=== PATIENT | male | born 1950 | race Caucasian/White ===

== ENCOUNTER 2022-06-01 13:47 | Inpatient (IN) | payer MEDICARE, BC ==
[2022-06-01] VITALS (12 sets, daily range): BP systolic 84–117; BP diastolic 51–93
[~2022-06-01] VITALS: Ht 172.7 cm; Wt 116.3 kg
[2022-06-01 15:41] LABS: International Normalized Ratio 3.97; Prothrombin Time Results 38.6 Sec (9.7-11.5)
[2022-06-01] MEDS ORDERED: COMBIVENT RESPIM4 G1 INH (15:44)
[2022-06-01] MEDS ORDERED: JANTOVEN5 M2 PO (15:44)
[2022-06-01] MEDS ORDERED: NEBIVOLOL HCL10 MG PO (15:44)
[2022-06-01] MEDS ORDERED: DOXAZOSIN MESYLA8 M2 PO (15:45)
[2022-06-01] MEDS ORDERED: METO5 PO (15:45)
[2022-06-01] MEDS ORDERED: ATOR10 PO (15:45)
[2022-06-01] MEDS ORDERED: K-TAB ER20 ME2 PO (15:45)
[2022-06-01] MEDS ORDERED: FUROSEMIDE40 MG PO (15:46)
[2022-06-01] MEDS ORDERED: Saw Palmetto160 MG PO (15:54)
[2022-06-01] MEDS ORDERED: OMEP20ER PO (15:54)
[2022-06-01] MEDS ORDERED: MULTIPLE VITAM1 EACH PO (15:54)
[2022-06-01] MEDS ORDERED: Garlic500 MG PO (15:55)
[2022-06-01] MEDS ORDERED: IPRAT-ALBUT 0.5-3 ML INH (18:51)
--- NOTE | 2022-06-01 19:13 | NUR ---
PCU ADMIT / END OF SHIFT PT BROUGHT TO PCU-19 BY STARR FROM ER @ APPROX 1745. PT A&O X4. PT ABLE TO STAND & WEAK[facility] BED. PT BP SOFT, BUT STABLE. SPO2 > 92% ON RA THOUGH PT REPORTING FEELING SOB. PT REPORTING INABILITY TO LAY FLAT. PT PALE IN APPEARANCE. PROTONIX GTT INFUSING UPON ARRIVAL TO UNIT. PG STARTED IN PCU & UNIT OF pRBCs INITIATED. UNIT OF BLOOD TRANSFUSING AT THIS TIME W/ PT TOLERATING WELL. REPORT GIVEN TO ACCEPTING SPARE PARTS CLERK RN.
[2022-06-01 22:33] LABS: Hematocrit 22.1 % (37.0-53.0); Hemoglobin 6.9 g/dL (13.5-17.5)
[2022-06-02] VITALS (15 sets, daily range): BP systolic 82–123; BP diastolic 46–82
[2022-06-02 04:48] LABS: BASOPHILS ABSOLUTE AUTO 0.09 K/mm3 (0.00-0.23); BASOPHILS PERCENT AUTO 1 % (0-2); EOSINOPHILS ABSOLUTE AUTO 0.08 K/mm3 (0.00-0.68); EOSINOPHILS PERCENT AUTO 1 % (0-6); Hematocrit 23.4 % (37.0-53.0); Hemoglobin 7.4 g/dL (13.5-17.5); IMMATURE GRAN ABSOLUTE AUTO 0.02 K/mm3 (0.00-0.10); IMMATURE GRAN PERCENT AUTO 0 % (0-1); LYMPHOCYTES ABSOLUTE AUTO 0.62 K/mm3 (0.84-5.20); LYMPHOCYTES PERCENT AUTO 8 % (21-46); MONOCYTES ABSOLUTE AUTO 1.08 K/mm3 (0.16-1.47); MONOCYTES PERCENT AUTO 14 % (4-13); Mean Corpuscular HGB 25.9 pg (26.0-34.0); Mean Corpuscular HGB Conc 31.6 g/dL (31.5-36.5); Mean Corpuscular Volume 82 fL (80-100); Mean Platelet Volume 9.3 fL (9.1-12.4); NEUTROPHILS ABSOLUTE AUTO 5.86 K/mm3 (1.96-9.15); NEUTROPHILS PERCENT AUTO 76 % (41-73); Platelet Count 230 K/mm3 (150-400); RDW Standard Deviation 50.8 fL (35.1-46.3); Red Blood Cell Count 2.86 M/mm3 (4.30-5.90); White Blood Cell Count 7.75 K/mm3 (4.00-11.30)
[2022-06-02 05:11] LABS: Albumin, Blood 3.6 g/dL (3.4-5.0); Albumin/Globulin Ratio 1.3 (0.8-1.8); Bilirubin, Total 1.5 mg/dL (0.1-1.0); Bun/Creatinine Ratio 45.5 (12.0-20.0); Calcium, Blood 8.6 mg/dL (8.5-10.1); Creatinine, Blood 1.23 mg/dL (0.60-1.20); Globulin, Blood 2.7 g/dL (2.2-4.0); Total Protein, Blood 6.3 g/dL (6.4-8.2)
--- NOTE | 2022-06-02 05:50 | NUR ---
END OF SHIFT PT ANXIOUS AND AGITATED ALL NIGHT, DID NOT SLEEP AND WOULD NOT LAY DOWN, NPO SINCE 0300 FOR POSSIBLE GI INTERVENTION, RCIEVED 2 UNITS PRBC'S, RA, VSS, GOOD UO, LAST HGB 7.4
[2022-06-02 08:32] LABS: Hematocrit 22.7 % (37.0-53.0); Hemoglobin 7.3 g/dL (13.5-17.5)
[2022-06-02 11:37] LABS: International Normalized Ratio 3.56; Prothrombin Time Results 34.8 Sec (9.7-11.5)
[2022-06-02 12:55] LABS: Hematocrit 23.2 % (37.0-53.0); Hemoglobin 7.4 g/dL (13.5-17.5)
--- NOTE | 2022-06-02 15:05 | NUR ---
PROCEDURE PT A&O X4. VSS. SPO2 > 92% ON RA. MONITOR SHOWING AFIB, HR 70s. PT REPORTS LAST BM LAST NIGHT. PROTONIX GTT INFUSING PER ORDERS. 1 UNIT FFP GIVEN. 2ND UNIT FFP INITIATED. NURSES TO PT RM TO TAKE PT FOR EGD. PROTONIX GTT PLACED ON STANDBY PER PROCEDURE NURSE. PT TAKEN FOR EGD W/ 2ND UNIT FFP INFUSING @ APPROX 1500.
--- NOTE | 2022-06-02 15:18 | NUR ---
IV ACCESS TO SERAFIN WITH FFP INFUSING, DRESSING D&I.
--- NOTE | 2022-06-02 15:38 | NUR ---
06/02/22 1538 Aaron Bower History, Chart, Medications and Allergies reviewed before start of procedure.MONITOR INTACT WITH CONTINUOUS PULSE OXIMETRY, CONTINUOUS END TITAL CO2, AND INTERMITTENT BLOOD PRESSURE.3-LEAD EKG REVIEWED WITH PHYSICIAN PRIOR TO START OF PROCEDURE.O2 VIA POM INTACT THROUGHOUT SEDATION/PROCEDURE.See Anesthesia record.
[2022-06-02 17:11] LABS: Hematocrit 22.6 % (37.0-53.0); Hemoglobin 7.1 g/dL (13.5-17.5)
[2022-06-02 17:52] LABS: International Normalized Ratio 2.58
[2022-06-02 18:25] LABS: Prothrombin Time Results 25.7 Sec (9.7-11.5)
--- NOTE | 2022-06-02 18:39 | NUR ---
END OF SHIFT PT CONTINUES TO BE A&O X4. VSS. SPO2 > 92% ON RA. MONITOR SHOWING AFIB, HR 70s. EGD DONE THIS SHIFT. PROTONIX GTT DC'd. MD METZGER STATING PT SHOULD BE HEPARINIZED. MD LYNNE W/ ORDER FOR HEPARIN GTT PER PHARMACY. PT TAKES WARFARIN AT HOME W/ PT REPORT OF LAST DOSE "7MG TUESDAY NIGHT." PHARMACY MANAGING & MONITORING W/ NO ORDER FOR MEDICATION AT THIS TIME. PHARMACY CONTINUING TO MONITOR. W/ ORDER TO ADVANCE DIET TOLERATED. PT EATING DINNER, TOLERATING WELL. PT DENYING PAIN/DISCOMFORT.
[2022-06-02 22:24] LABS: Hematocrit 23.6 % (37.0-53.0); Hemoglobin 7.3 g/dL (13.5-17.5)
[2022-06-03] VITALS (7 sets, daily range): BP systolic 105–146; BP diastolic 60–82
[2022-06-03 06:14] LABS: BASOPHILS ABSOLUTE AUTO 0.08 K/mm3 (0.00-0.23); BASOPHILS PERCENT AUTO 1 % (0-2); EOSINOPHILS ABSOLUTE AUTO 0.14 K/mm3 (0.00-0.68); EOSINOPHILS PERCENT AUTO 2 % (0-6); Hematocrit 22.4 % (37.0-53.0); IMMATURE GRAN ABSOLUTE AUTO 0.02 K/mm3 (0.00-0.10); IMMATURE GRAN PERCENT AUTO 0 % (0-1); LYMPHOCYTES ABSOLUTE AUTO 0.52 K/mm3 (0.84-5.20); LYMPHOCYTES PERCENT AUTO 8 % (21-46); MONOCYTES ABSOLUTE AUTO 0.89 K/mm3 (0.16-1.47); MONOCYTES PERCENT AUTO 13 % (4-13); Mean Corpuscular HGB 26.1 pg (26.0-34.0); Mean Corpuscular HGB Conc 31.3 g/dL (31.5-36.5); Mean Corpuscular Volume 84 fL (80-100); Mean Platelet Volume 9.6 fL (9.1-12.4); NEUTROPHILS ABSOLUTE AUTO 5.14 K/mm3 (1.96-9.15); NEUTROPHILS PERCENT AUTO 76 % (41-73); NRBC ABSOLUTE 0.02 K/mm3 (0.00-0.02); NRBC Auto 0.3 /100 WBC (0.0-0.2); Platelet Count 234 K/mm3 (150-400); RDW Coefficient Variation 18.5 % (11.7-14.2); RDW Standard Deviation 53.7 fL (35.1-46.3); Red Blood Cell Count 2.68 M/mm3 (4.30-5.90); White Blood Cell Count 6.79 K/mm3 (4.00-11.30)
--- NOTE | 2022-06-03 06:19 | NUR ---
PT SLEPT 2 HOURS, OTHERWISE VSS, UP TO BATHROOM WITHOUT ISSUES, RA, NO SOB OR REPORT OF SYMPTOMS RETURNING, LAST HGB 7.3 AND THIS AM RESULT IS PENDING
[2022-06-03 06:32] LABS: Bun/Creatinine Ratio 36.2 (12.0-20.0); Calcium, Blood 8.5 mg/dL (8.5-10.1); Creatinine, Blood 1.05 mg/dL (0.60-1.20); Potassium, Blood 3.5 mmol/L (3.5-5.5)
[2022-06-03 07:17] LABS: International Normalized Ratio 2.67; Prothrombin Time Results 26.5 Sec (9.7-11.5)
[2022-06-03 15:04] LABS: BASOPHILS ABSOLUTE AUTO 0.09 K/mm3 (0.00-0.23); BASOPHILS PERCENT AUTO 1 % (0-2); EOSINOPHILS ABSOLUTE AUTO 0.12 K/mm3 (0.00-0.68); EOSINOPHILS PERCENT AUTO 2 % (0-6); Hematocrit 24.5 % (37.0-53.0); Hemoglobin 7.7 g/dL (13.5-17.5); IMMATURE GRAN ABSOLUTE AUTO 0.04 K/mm3 (0.00-0.10); IMMATURE GRAN PERCENT AUTO 1 % (0-1); LYMPHOCYTES ABSOLUTE AUTO 0.55 K/mm3 (0.84-5.20); LYMPHOCYTES PERCENT AUTO 8 % (21-46); MONOCYTES ABSOLUTE AUTO 1.04 K/mm3 (0.16-1.47); MONOCYTES PERCENT AUTO 16 % (4-13); Mean Corpuscular HGB 26.7 pg (26.0-34.0); Mean Corpuscular HGB Conc 31.4 g/dL (31.5-36.5); Mean Corpuscular Volume 85 fL (80-100); Mean Platelet Volume 9.3 fL (9.1-12.4); NEUTROPHILS ABSOLUTE AUTO 4.74 K/mm3 (1.96-9.15); NEUTROPHILS PERCENT AUTO 72 % (41-73); Platelet Count 230 K/mm3 (150-400); RDW Coefficient Variation 18.1 % (11.7-14.2); RDW Standard Deviation 54.5 fL (35.1-46.3); Red Blood Cell Count 2.88 M/mm3 (4.30-5.90); White Blood Cell Count 6.58 K/mm3 (4.00-11.30)
[2022-06-03] MEDS ORDERED: PANT40 PO (15:51)
[2022-06-03] MEDS ORDERED: WARF4 PO (15:52)
[2022-06-03] MEDS ORDERED: Acetaminophen650 M1 PO (15:53)
[2022-06-03] MEDS ORDERED: PRAM.125 PO (15:54)
[2022-06-03] MEDS ORDERED: TRAM50 PO (15:56)
--- NOTE | 2022-06-03 17:00 | NUR ---
DISCHARGE HOME PT A&O X4. VSS. SPO2 > 92% ON RA. MONITOR SHOWING AFIB, HR 70s. 1 UNIT pRBCs INFUSED PER ORDERS. REPEAT BLOOD WORK DRAWN AFTER BLOOD TRANSFUSION. MD LYNNE W/ ORDER FOR DISCHARGE HOME. DISCHARGE INSTRUCTIONS/FOLLOW UP INSTRUCTIONS REVIEWED W/ PT & SENT HOME W/ PT. PIV & PG REMOVED. PT TAKEN OUT IN WHEELCHAIR W/ BELONGINGS.
== END 2022-06-03 17:53 | disposition home or self-care (01) | DRG 811 ==
LOC: ER 13:47 → PCU 16:02
PROVIDERS: Emergency Medicine; Internal Medicine Gastroenterology; ADMIT Internal Medicine
PROC: 30233N1 Transfusion of Nonautologous Red Blood Cells into Peripheral Vein, Percutaneous Approach (ICD-10-PCS; 2022-06-01)
PROC: 30233K1 Transfusion of Nonautologous Frozen Plasma into Peripheral Vein, Percutaneous Approach (ICD-10-PCS; 2022-06-01)
PROC: 0DJ08ZZ Inspection of Upper Intestinal Tract, Via Natural or Artificial Opening Endoscopic (ICD-10-PCS; principal; 2022-06-02 15:00)
DX: D62 Acute posthemorrhagic anemia (principal); K25.4 Chronic or unspecified gastric ulcer with hemorrhage; K29.71 Gastritis, unspecified, with bleeding; D68.9 Coagulation defect, unspecified; G25.81 Restless legs syndrome; M19.90 Unspecified osteoarthritis, unspecified site; I48.91 Unspecified atrial fibrillation; J44.9 Chronic obstructive pulmonary disease, unspecified; T39.395A Adverse effect of other nonsteroidal anti-inflammatory drugs [NSAID], initial encounter; M54.9 Dorsalgia, unspecified; G89.29 Other chronic pain; I10 Essential (primary) hypertension; E78.5 Hyperlipidemia, unspecified; N40.0 Benign prostatic hyperplasia without lower urinary tract symptoms; I08.1 Rheumatic disorders of both mitral and tricuspid valves; Z98.890 Other specified postprocedural states; Z90.49 Acquired absence of other specified parts of digestive tract; Z96.659 Presence of unspecified artificial knee joint; Z79.899 Other long term (current) drug therapy; Z79.01 Long term (current) use of anticoagulants; Z95.2 Presence of prosthetic heart valve; Z87.891 Personal history of nicotine dependence; Z79.02 Long term (current) use of antithrombotics/antiplatelets; Z79.51 Long term (current) use of inhaled steroids; Z88.2 Allergy status to sulfonamides
CPT/HCPCS: 36415; 36430; 80048; 80053; 82272; 83880; 84484; 85014; 85018; 85025; 85610; 86850; 86900; 86901; 86923; 93005; 93010; 94640; 94664; 94760; 94762; 96374; 96376; 99285-25; A9270; C1751; C9113; J0171; J2704; J7050; J7120; P9016; P9059

== ENCOUNTER → 2022-06-01 | Outpatient (CLI) | payer MEDICARE, BC ==
[~2022-06-01] MED LIST: ATOR10 PO; Acetaminophen650 M1 PO; COMBIVENT RESPIM4 G1 INH; DOXAZOSIN MESYLA8 M2 PO; FUROSEMIDE40 MG PO; Garlic500 MG PO; IPRAT-ALBUT 0.5-3 ML INH; JANTOVEN5 M2 PO; K-TAB ER20 ME2 PO; METO5 PO; MULTIPLE VITAM1 EACH PO; NEBIVOLOL HCL10 MG PO; OMEP20ER PO; PANT40 PO; PRAM.125 PO; Saw Palmetto160 MG PO; TRAM50 PO; WARF4 PO
[2022-06-01 13:06] LABS: BASOPHILS ABSOLUTE AUTO 0.08 K/mm3 (0.00-0.23); BASOPHILS PERCENT AUTO 1 % (0-2); EOSINOPHILS ABSOLUTE AUTO 0.13 K/mm3 (0.00-0.68); EOSINOPHILS PERCENT AUTO 2 % (0-6); Hematocrit 20.4 % (37.0-53.0); Hemoglobin 6.4 g/dL (13.5-17.5); IMMATURE GRAN ABSOLUTE AUTO 0.02 K/mm3 (0.00-0.10); IMMATURE GRAN PERCENT AUTO 0 % (0-1); LYMPHOCYTES ABSOLUTE AUTO 0.61 K/mm3 (0.84-5.20); LYMPHOCYTES PERCENT AUTO 10 % (21-46); MONOCYTES ABSOLUTE AUTO 0.87 K/mm3 (0.16-1.47); MONOCYTES PERCENT AUTO 14 % (4-13); Mean Corpuscular HGB Conc 31.4 g/dL (31.5-36.5); Mean Corpuscular Volume 83 fL (80-100); Mean Platelet Volume 8.9 fL (9.1-12.4); NEUTROPHILS ABSOLUTE AUTO 4.63 K/mm3 (1.96-9.15); NEUTROPHILS PERCENT AUTO 73 % (41-73); NRBC ABSOLUTE 0.02 K/mm3 (0.00-0.02); NRBC Auto 0.3 /100 WBC (0.0-0.2); Platelet Count 218 K/mm3 (150-400); RDW Coefficient Variation 18.5 % (11.7-14.2); RDW Standard Deviation 52.3 fL (35.1-46.3); Red Blood Cell Count 2.46 M/mm3 (4.30-5.90); White Blood Cell Count 6.34 K/mm3 (4.00-11.30)
[2022-06-01 13:16] LABS: Albumin, Blood 3.7 g/dL (3.4-5.0); Albumin/Globulin Ratio 1.4 (0.8-1.8); Bilirubin, Total 0.9 mg/dL (0.1-1.0); Bun/Creatinine Ratio 41.2 (12.0-20.0); Calcium, Blood 8.8 mg/dL (8.5-10.1); Creatinine, Blood 1.48 mg/dL (0.60-1.20); Globulin, Blood 2.7 g/dL (2.2-4.0); Potassium, Blood 3.6 mmol/L (3.5-5.5); Total Protein, Blood 6.4 g/dL (6.4-8.2)
[2022-06-01 14:33] LABS: Prothrombin Time Results 39.7 Sec (9.7-11.5)
[2022-06-01 14:55] LABS: International Normalized Ratio 4.1
== END ==
LOC: LAB 13:02 → LAB SHORT 13:02
PROVIDERS: Chiropractor
DX: Z79.01 Long term (current) use of anticoagulants (principal); Z51.81 Encounter for therapeutic drug level monitoring; R06.00 Dyspnea, unspecified; R53.83 Other fatigue; R60.0 Localized edema
CPT/HCPCS: 80053; 83880; 84484; 85025; 85610

== ENCOUNTER 2023-01-17 21:44 | Emergency (ER) | payer MEDICARE, BC ==
[~2023-01-17] VITALS: Ht 172.7 cm; Wt 113.4 kg
[2023-01-17 21:53] VITALS: BP 106/64
== END 2023-01-17 22:01 | disposition home or self-care (01) ==
LOC: ER 21:44
DX: R50.9 Fever, unspecified (principal); J44.9 Chronic obstructive pulmonary disease, unspecified; Z79.01 Long term (current) use of anticoagulants; Z95.2 Presence of prosthetic heart valve; Z79.899 Other long term (current) drug therapy; Z87.891 Personal history of nicotine dependence
CPT/HCPCS: 99282

== ENCOUNTER → 2023-01-18 | Outpatient (CLI) | payer MEDICARE, BC ==
[2023-01-18 12:04] LABS: Hematocrit 32.3 % (37.0-53.0); Hemoglobin 10.9 g/dL (13.5-17.5); Mean Corpuscular HGB 30.4 pg (26.0-34.0); Mean Corpuscular HGB Conc 33.7 g/dL (31.5-36.5); Mean Corpuscular Volume 90 fL (80-100); Mean Platelet Volume 9.9 fL (9.1-12.4); Platelet Count 132 K/mm3 (150-400); RDW Coefficient Variation 14.3 % (11.7-14.2); RDW Standard Deviation 46.6 fL (35.1-46.3); Red Blood Cell Count 3.59 M/mm3 (4.30-5.90); White Blood Cell Count 9.91 K/mm3 (4.00-11.30)
[2023-01-18 12:12] LABS: Albumin, Blood 3.3 g/dL (3.4-5.0); Albumin/Globulin Ratio 1.1 (0.8-1.8); Bilirubin, Total 1.8 mg/dL (0.1-1.0); Bun/Creatinine Ratio 22.2 (12.0-20.0); Calcium, Blood 8.3 mg/dL (8.5-10.1); Creatinine, Blood 1.58 mg/dL (0.60-1.20); Globulin, Blood 2.9 g/dL (2.2-4.0); Potassium, Blood 4.2 mmol/L (3.5-5.5); Total Protein, Blood 6.2 g/dL (6.4-8.2)
[2023-01-18 12:36] LABS: BAND PERCENT MAN 9 % (0-8); LYMPHOCYTES ABSOLUTE MAN 0.19 K/mm3 (0.84-5.20); LYMPHOCYTES PERCENT MAN 2 % (21-46); MONOCYTES ABSOLUTE MAN 1.09 K/mm3 (0.16-1.47); MONOCYTES PERCENT MAN 11 % (4-13); NEUTROPHILS ABSOLUTE MAN 8.52 K/mm3 (1.96-9.15); SEG NEUTROPHILS PERCENT MAN 77 % (41-73); TOTAL CELLS COUNTED 100
[2023-01-18 12:37] LABS: EOSINOPHILS ABSOLUTE MAN 0.09 K/mm3 (0.00-0.68); EOSINOPHILS PERCENT MAN 1 % (0-6)
== END | disposition home or self-care (01) ==
LOC: LAB SHORT 12:00 → LAB 12:00
PROVIDERS: Family Medicine
DX: R50.9 Fever, unspecified (principal)
CPT/HCPCS: 80053; 83605; 85025

== ENCOUNTER 2023-03-17 05:04 | Day surgery (SDC) | payer MEDICARE, BC ==
[2023-03-17 13:51] VITALS: BP 97/59
[2023-03-17 14:10] VITALS: BP 99/56
[2023-03-17] MEDS ORDERED: MERIBIN5 MG PO (14:28)
[2023-03-17] MEDS ORDERED: Aspir 8181 MG (14:28)
[2023-03-17] MEDS ORDERED: ACID REDUCER15 MG PO (14:29)
[2023-03-17 15:12] VITALS: BP 114/62
[2023-03-17 15:45] VITALS: BP 102/63
--- NOTE | 2023-03-17 16:30 | NUR ---
LABS DRAWN 30 MIN POST TRANSFUSION.
[2023-03-17 16:33] LABS: Hematocrit 26.3 % (37.0-53.0); Hemoglobin 7.4 g/dL (13.5-17.5); Mean Corpuscular HGB 23.1 pg (26.0-34.0); Mean Corpuscular HGB Conc 28.1 g/dL (31.5-36.5); Mean Corpuscular Volume 82 fL (80-100); Mean Platelet Volume 8.3 fL (9.1-12.4); Platelet Count 279 K/mm3 (150-400); RDW Coefficient Variation 19.9 % (11.7-14.2); RDW Standard Deviation 59.6 fL (35.1-46.3); RETICULOCYTE COUNT PERCENT 5.03 % (0.50-2.50); White Blood Cell Count 5.61 K/mm3 (4.00-11.30)
== END 2023-03-17 16:20 | disposition home or self-care (01) ==
LOC: ATC 05:04
PROVIDERS: Family Medicine
DX: D62 Acute posthemorrhagic anemia (principal); I11.0 Hypertensive heart disease with heart failure; I50.22 Chronic systolic (congestive) heart failure; E78.5 Hyperlipidemia, unspecified; I48.91 Unspecified atrial fibrillation; J44.9 Chronic obstructive pulmonary disease, unspecified; K21.9 Gastro-esophageal reflux disease without esophagitis; Z88.2 Allergy status to sulfonamides; Z79.82 Long term (current) use of aspirin; Z79.01 Long term (current) use of anticoagulants; Z79.899 Other long term (current) drug therapy
CPT/HCPCS: 36430; 82607; 82728; 82746; 83540; 83550; 85027; 85045; 86850; 86900; 86901; 86923; J7050; P9016

== ENCOUNTER 2024-05-09 01:24 | Day surgery (SDC) | payer MEDICARE, BC ==
[~2024-05-09 01:24] MED LIST changes: +ACID REDUCER15 MG PO; +Aspir 8181 MG PO; +MERIBIN5 MG PO
[2024-05-09] MEDS ORDERED: NS 250 ML IV SCH (06:55)
[2024-05-09 13:31] VITALS: BP 133/57
[2024-05-09 13:51] VITALS: BP 109/52
[2024-05-09 14:50] VITALS: BP 127/45
[2024-05-09 15:03] VITALS: BP 127/45
[2024-05-09 15:27] VITALS: BP 120/58
[2024-05-09 16:29] VITALS: BP 128/50
== END 2024-05-09 17:03 | disposition home or self-care (01) ==
LOC: ATC 01:24
DX: D50.9 Iron deficiency anemia, unspecified (principal); I48.91 Unspecified atrial fibrillation; M19.019 Primary osteoarthritis, unspecified shoulder; I11.0 Hypertensive heart disease with heart failure; I50.30 Unspecified diastolic (congestive) heart failure; J44.9 Chronic obstructive pulmonary disease, unspecified; E78.5 Hyperlipidemia, unspecified; Z88.2 Allergy status to sulfonamides; Z88.1 Allergy status to other antibiotic agents; Z79.01 Long term (current) use of anticoagulants; Z79.82 Long term (current) use of aspirin; Z79.899 Other long term (current) drug therapy
CPT/HCPCS: 36415; 36430; 86850; 86900; 86901; 86923; J7050; P9016

== ENCOUNTER → 2024-05-24 | Outpatient (CLI) | payer MEDICARE, BC ==
[2024-05-24 13:28] LABS: Stool Occult Bld Immuno 1 Positive (NEGATIVE); Stool Occult Bld Immuno 2 Positive (NEGATIVE); Stool Occult Bld Immuno 3 Positive (NEGATIVE)
== END ==
LOC: LAB 06:30 → LAB SHORT 06:30
PROVIDERS: Registered Nurse Oncology
DX: D50.9 Iron deficiency anemia, unspecified (principal); D59.19 Other autoimmune hemolytic anemia
CPT/HCPCS: 82274

== ENCOUNTER 2024-06-04 12:18 | Emergency (ER) | payer MEDICARE, BC ==
[~2024-06-04] VITALS: Ht 175.3 cm; Wt 90.7 kg
[2024-06-04] MEDS ORDERED: Pantoprazole Sodium 40 MG Injection IV ONE (13:55)
[2024-06-04 14:28] LABS: BASOPHILS ABSOLUTE AUTO 0.05 K/mm3 (0.00-0.23); BASOPHILS PERCENT AUTO 1 % (0-2); EOSINOPHILS ABSOLUTE AUTO 0.16 K/mm3 (0.00-0.68); EOSINOPHILS PERCENT AUTO 3 % (0-6); IMMATURE GRAN ABSOLUTE AUTO 0.01 K/mm3 (0.00-0.10); IMMATURE GRAN PERCENT AUTO 0 % (0-1); LYMPHOCYTES ABSOLUTE AUTO 0.59 K/mm3 (0.84-5.20); LYMPHOCYTES PERCENT AUTO 9 % (21-46); MONOCYTES ABSOLUTE AUTO 0.59 K/mm3 (0.16-1.47); MONOCYTES PERCENT AUTO 9 % (4-13); Mean Corpuscular HGB 29.5 pg (26.0-34.0); Mean Corpuscular HGB Conc 30.6 g/dL (31.5-36.5); Mean Corpuscular Volume 97 fL (80-100); Mean Platelet Volume 9.2 fL (9.1-12.4); NEUTROPHILS ABSOLUTE AUTO 5.01 K/mm3 (1.96-9.15); NEUTROPHILS PERCENT AUTO 78 % (41-73); Platelet Count 200 K/mm3 (150-400); RDW Coefficient Variation 13.9 % (11.7-14.2); RDW Standard Deviation 49.5 fL (35.1-46.3); Red Blood Cell Count 1.49 M/mm3 (4.30-5.90); White Blood Cell Count 6.41 K/mm3 (4.00-11.30)
[2024-06-04 14:54] LABS: Albumin, Blood 3.1 g/dL (3.4-5.0); Albumin/Globulin Ratio 1.2 (0.8-1.8); Bilirubin, Total 0.3 mg/dL (0.1-1.0); Calcium, Blood 8.5 mg/dL (8.5-10.1); Creatinine, Blood 2.72 mg/dL (0.60-1.20); Globulin, Blood 2.5 g/dL (2.2-4.0); Potassium, Blood 4.9 mmol/L (3.5-5.5); Total Protein, Blood 5.6 g/dL (6.4-8.2)
[2024-06-04] MEDS ORDERED: NS 1,000 ML IV ONE (14:58)
[2024-06-04] MEDS ORDERED: NS 1,000 ML IV SCH (15:00)
[2024-06-04 15:15] LABS: IMMATURE RETIC FRACTION 24.3 % (2.3-16.0); RETIC HGB EQUIVALENT 24.4 pg (28.20-36.60); RETICULOCYTE ABSOLUTE 0.0909 M/mm3 (0.0200-0.1100); RETICULOCYTE COUNT PERCENT 5.98 % (0.50-2.50)
[2024-06-04 15:40] LABS: Hematocrit 14.4 % (37.0-53.0); Hemoglobin 4.4 g/dL (13.5-17.5)
[2024-06-04 20:43] VITALS: BP 130/67
[2024-06-05 21:30] LABS: HAPTOGLOBIN 52 mg/dL (30-200)
== END 2024-06-04 21:21 | disposition home or self-care (01) ==
LOC: ER 12:18
PROVIDERS: Emergency Medicine; Student in an Organized Health Care Education/Training Program
DX: D59.10 Autoimmune hemolytic anemia, unspecified (principal); D64.9 Anemia, unspecified; J44.9 Chronic obstructive pulmonary disease, unspecified; I10 Essential (primary) hypertension; D50.9 Iron deficiency anemia, unspecified; Z79.01 Long term (current) use of anticoagulants; Z79.899 Other long term (current) drug therapy; Z79.82 Long term (current) use of aspirin; Z88.2 Allergy status to sulfonamides; Z88.8 Allergy status to other drugs, medicaments and biological substances; Z96.659 Presence of unspecified artificial knee joint
CPT/HCPCS: 36415; 36430; 71046; 80048; 80053; 83010; 83615; 85025; 85045; 86850; 86900; 86901; 86923; 93005; 93010; 99284-25; J7030; P9016

== ENCOUNTER 2024-06-11 16:05 | Emergency (ER) | payer MEDICARE, BC ==
[~2024-06-11] VITALS: Ht 172.7 cm; Wt 111.1 kg
[2024-06-11] MEDS ORDERED: ENTRESTO 24 MG1 EAC3 PO (18:37)
[2024-06-11] MEDS ORDERED: SPIRONOLACTONE25 MG PO (18:38)
[2024-06-11] MEDS ORDERED: TORS10 PO (18:38)
[2024-06-11] MEDS ORDERED: FERSU300 PO (18:39)
[2024-06-11 18:58] LABS: Source, Urine Clean Catch
[2024-06-11 19:03] LABS: Appearance, Urine Clear (Clear); Bilirubin, Urine Neg (Neg); Blood, Urine Neg (Neg); Glucose Qualitative, Urine Neg (Neg); Ketones, Urine Neg (Neg); Leukocyte Esterase, Urine Neg (Neg); Nitrite, Urine Neg (Neg); Protein, Urine Neg (Neg); Urobilinogen, Urine NORM (Normal)
[2024-06-11 19:11] LABS: Color, Urine Pale Yellow (P-Yellow)
[2024-06-11 19:15] VITALS: BP 142/58
[2024-06-11] MEDS ORDERED: Lidocaine 2% Jelly Uro-Jet UR ONE (21:05)
[2024-06-11 21:13] LABS: Calcium, Ionized (POC) 1.14 mmol/L (1.10-1.46); Chloride (POC) 109 mmol/L (98-108); Creatinine (POC) 3.2 mg/dL (0.8-1.3); Glucose (ISTAT POC) 82 mg/dL (70-99); Hemoglobin (POC) 7.5 g/dL (13.5-17.5); Potassium (POC) 5.6 mmol/L (3.5-5.5); Sodium (POC) 138 mmol/L (135-148); Total CO2 (POC) 19 mmol/L (21-32)
[2024-06-12] MEDS ORDERED: Flomax0.4 MG PO (12:39)
== END 2024-06-11 22:27 | disposition home or self-care (01) ==
LOC: ER 16:05
PROVIDERS: Emergency Medicine; Student in an Organized Health Care Education/Training Program
DX: R33.9 Retention of urine, unspecified (principal); N17.9 Acute kidney failure, unspecified
CPT/HCPCS: 51702; 51798; 80047; 81003; 85014; 99283-25

== ENCOUNTER 2024-06-12 10:41 | Emergency (ER) | payer MEDICARE, BC ==
[~2024-06-12] VITALS: Ht 172.7 cm; Wt 108.9 kg
[~2024-06-12 10:41] MED LIST changes: +ENTRESTO 24 MG1 EAC3 PO; +FERSU300 PO; +SPIRONOLACTONE25 MG PO; +TORS10 PO
[2024-06-12 10:47] VITALS: BP 102/54
[2024-06-12 11:21] LABS: BASOPHILS ABSOLUTE AUTO 0.09 K/mm3 (0.00-0.23); BASOPHILS PERCENT AUTO 1 % (0-2); EOSINOPHILS ABSOLUTE AUTO 0.26 K/mm3 (0.00-0.68); EOSINOPHILS PERCENT AUTO 3 % (0-6); Hematocrit 23.7 % (37.0-53.0); Hemoglobin 7.1 g/dL (13.5-17.5); IMMATURE GRAN ABSOLUTE AUTO 0.04 K/mm3 (0.00-0.10); IMMATURE GRAN PERCENT AUTO 1 % (0-1); LYMPHOCYTES ABSOLUTE AUTO 0.55 K/mm3 (0.84-5.20); LYMPHOCYTES PERCENT AUTO 7 % (21-46); MONOCYTES ABSOLUTE AUTO 1.04 K/mm3 (0.16-1.47); MONOCYTES PERCENT AUTO 12 % (4-13); Mean Corpuscular HGB 29.2 pg (26.0-34.0); Mean Corpuscular Volume 98 fL (80-100); Mean Platelet Volume 8.7 fL (9.1-12.4); NEUTROPHILS ABSOLUTE AUTO 6.46 K/mm3 (1.96-9.15); NEUTROPHILS PERCENT AUTO 77 % (41-73); Platelet Count 264 K/mm3 (150-400); RDW Coefficient Variation 15.3 % (11.7-14.2); Red Blood Cell Count 2.43 M/mm3 (4.30-5.90); White Blood Cell Count 8.44 K/mm3 (4.00-11.30)
[2024-06-12 11:34] LABS: International Normalized Ratio 1.84; Prothrombin Time Results 18.8 Sec (9.7-11.5)
[2024-06-12 12:04] LABS: Bun/Creatinine Ratio 17.2 (12.0-20.0); Creatinine, Blood 2.73 mg/dL (0.60-1.20); Potassium, Blood 5.3 mmol/L (3.5-5.5)
[2024-06-12] MEDS ORDERED: Flomax0.4 MG PO (12:39)
== END 2024-06-12 13:18 | disposition home or self-care (01) ==
LOC: ER 10:41
PROVIDERS: Emergency Medicine
DX: D64.9 Anemia, unspecified (principal); N18.9 Chronic kidney disease, unspecified; J44.9 Chronic obstructive pulmonary disease, unspecified; I48.91 Unspecified atrial fibrillation; I10 Essential (primary) hypertension; Z87.891 Personal history of nicotine dependence; Z79.01 Long term (current) use of anticoagulants; Z79.82 Long term (current) use of aspirin; Z79.899 Other long term (current) drug therapy; Z88.2 Allergy status to sulfonamides; Z88.8 Allergy status to other drugs, medicaments and biological substances
CPT/HCPCS: 80048; 85025; 85610; 99283

== ENCOUNTER 2024-06-17 00:35 | Day surgery (SDC) | payer MEDICARE, BC ==
[2024-06-14 15:53] LABS: BASOPHILS ABSOLUTE AUTO 0.08 K/mm3 (0.00-0.23); BASOPHILS PERCENT AUTO 1 % (0-2); EOSINOPHILS ABSOLUTE AUTO 0.32 K/mm3 (0.00-0.68); EOSINOPHILS PERCENT AUTO 5 % (0-6); Hematocrit 22.3 % (37.0-53.0); Hemoglobin 6.9 g/dL (13.5-17.5); IMMATURE GRAN ABSOLUTE AUTO 0.02 K/mm3 (0.00-0.10); IMMATURE GRAN PERCENT AUTO 0 % (0-1); LYMPHOCYTES ABSOLUTE AUTO 0.69 K/mm3 (0.84-5.20); LYMPHOCYTES PERCENT AUTO 10 % (21-46); MONOCYTES ABSOLUTE AUTO 0.99 K/mm3 (0.16-1.47); MONOCYTES PERCENT AUTO 15 % (4-13); Mean Corpuscular HGB 29.6 pg (26.0-34.0); Mean Corpuscular HGB Conc 30.9 g/dL (31.5-36.5); Mean Corpuscular Volume 96 fL (80-100); Mean Platelet Volume 8.9 fL (9.1-12.4); NEUTROPHILS ABSOLUTE AUTO 4.63 K/mm3 (1.96-9.15); NEUTROPHILS PERCENT AUTO 69 % (41-73); Platelet Count 239 K/mm3 (150-400); RDW Coefficient Variation 15.6 % (11.7-14.2); RDW Standard Deviation 53.3 fL (35.1-46.3); Red Blood Cell Count 2.33 M/mm3 (4.30-5.90); White Blood Cell Count 6.73 K/mm3 (4.00-11.30)
[~2024-06-17 00:35] MED LIST changes: +Flomax0.4 MG PO
[2024-06-17] MEDS ORDERED: NS 250 ML IV SCH (06:40)
[2024-06-17 13:02] VITALS: BP 115/49
[2024-06-17 13:19] VITALS: BP 104/58
[2024-06-17 14:31] VITALS: BP 119/55
== END 2024-06-17 14:45 | disposition home or self-care (01) ==
LOC: ATC 00:35 → EDSTATUS 13:30 → ATC 14:45
PROVIDERS: Registered Nurse Oncology
DX: C91.10 Chronic lymphocytic leukemia of B-cell type not having achieved remission (principal); D59.19 Other autoimmune hemolytic anemia; D50.9 Iron deficiency anemia, unspecified; I11.0 Hypertensive heart disease with heart failure; I50.22 Chronic systolic (congestive) heart failure; I48.91 Unspecified atrial fibrillation; E78.5 Hyperlipidemia, unspecified; Z79.82 Long term (current) use of aspirin; Z79.01 Long term (current) use of anticoagulants; Z79.899 Other long term (current) drug therapy
CPT/HCPCS: 36430; 85025; 86850; 86900; 86901; 86923; J7050; P9016

== ENCOUNTER 2024-07-05 02:31 | Day surgery (SDC) | payer MEDICARE, BC ==
[2024-07-05] VITALS (7 sets, daily range): BP systolic 93–127; BP diastolic 47–70
[2024-07-05] MEDS ORDERED: NS 250 ML IV SCH (07:35)
== END 2024-07-05 17:18 | disposition home or self-care (01) ==
LOC: ATC 02:31
DX: D59.4 Other nonautoimmune hemolytic anemias (principal); D62 Acute posthemorrhagic anemia; C91.10 Chronic lymphocytic leukemia of B-cell type not having achieved remission; I11.0 Hypertensive heart disease with heart failure; I50.22 Chronic systolic (congestive) heart failure; M19.90 Unspecified osteoarthritis, unspecified site; I48.91 Unspecified atrial fibrillation; E78.5 Hyperlipidemia, unspecified; J98.4 Other disorders of lung; Z87.891 Personal history of nicotine dependence; Z79.01 Long term (current) use of anticoagulants; Z79.82 Long term (current) use of aspirin; Z79.899 Other long term (current) drug therapy; Z88.2 Allergy status to sulfonamides; Z95.2 Presence of prosthetic heart valve
CPT/HCPCS: 36415; 36430; 86850; 86900; 86901; 86923; J7050; P9016